=== PATIENT | male | born 1995 | race Caucasian/White ===

== ENCOUNTER 2021-08-09 15:29 | Emergency (ER) | payer OTHER ==
[~2021-08-09] VITALS: Ht 175.3 cm; Wt 76.7 kg
[2021-08-09 15:31] VITALS: BP 138/69
[2021-08-09] MEDS ORDERED: NACL 0.9% 1,000 ML IV ONE (15:55)
[2021-08-09] MEDS ORDERED: KETOROLAC 30 MG/ML VIAL IVP ONE (15:55)
[2021-08-09] MEDS ORDERED: METOCLOPRAMIDE 10 MG/2 ML INJ VIAL IVP ONE (15:55)
--- NOTE | 2021-08-09 15:56 | NUR ---
26Y MALE BIB SELF DUE TO HEADACHE SINCE THIS AM. DENIES HITTING HIS HEAD OR ANY BLURRED VISION. PT STATED HE EXPERINCED AN EPISODIE OF N/V AFTER TAKING IBUPROFEN EARLIER. LET ME KNOW HE DID NOT EAT ANYTHING ALL DAY PRIOR TO TAKING MEDICATION. . PT STATED BESIDES HEAD PAIN HE IS HAVING LOWER BACK PAIN 5/10. COMPLAINS OF NO OTHER PAIN. PT A&OX4, RESTING IN BED. PMH: DENIES NKA
--- NOTE | 2021-08-09 16:25 | NUR ---
TYLER AND FLU SWABBED AND WALED TO LAB
[2021-08-09] MEDS ORDERED: ONDA-188 SL (17:20)
[2021-08-09] MEDS ORDERED: NAPR-54 PO (17:20)
[2021-08-09 17:35] VITALS: BP 138/69
--- NOTE | 2021-08-09 17:36 | NUR ---
Patient discharged with v/s stable. Written and verbal after care instructions given and explained. Patient alert, oriented and verbalized understanding of instructions. Ambulatory with steady gait. All questions addressed prior to discharge. ID band removed. Patient advised to follow up with PMD. Rx of NAPROXEN AND ZOFRAN given. Patient educated on indication of medication including possible reaction and side effects. Opportunity to ask questions provided and answered.
== END 2021-08-09 17:35 | disposition home or self-care (01) ==
LOC: MED 15:29
DX: U07.1 COVID-19 (principal); Z79.899 Other long term (current) drug therapy
CPT/HCPCS: 87426; 87804; 96361; 96374; 96375; 99284; J1885; J2765; J7030

== ENCOUNTER 2021-11-12 22:02 | Emergency (ER) | payer OTHER ==
[~2021-11-12] VITALS: Ht 177.8 cm; Wt 88.5 kg
[~2021-11-12 22:02] MED LIST: NAPR-54 PO; ONDA-188 SL
[2021-11-12 22:05] VITALS: BP 150/85
--- NOTE | 2021-11-12 22:11 | NUR ---
TO LOBBY A/W BED AMBULATORY
--- NOTE | 2021-11-13 00:05 | NUR ---
PT TO BED #6
[2021-11-13] MEDS ORDERED: IBUP-2213 PO (00:31)
--- NOTE | 2021-11-13 00:43 | NUR ---
PER ERMD INSTRUCTION ULNAR GUTTER SPLINT APPLIED TO PTS RIGHT WRITS AND FOREARM. PT TOLERATED THE PROCEDURE WELL +CMS BEFORE AND AFTER APPLICATION
--- NOTE | 2021-11-13 00:53 | NUR ---
NOR NURSING INTVERVETIONS REQUIRED.
== END 2021-11-13 00:58 | disposition home or self-care (01) ==
LOC: MED 22:02
DX: S62.141A Displaced fracture of body of hamate [unciform] bone, right wrist, initial encounter for closed fracture (principal); Z79.899 Other long term (current) drug therapy; W01.0XXA Fall on same level from slipping, tripping and stumbling without subsequent striking against object, initial encounter; Y93.89 Activity, other specified; Y92.89 Other specified places as the place of occurrence of the external cause; Y99.8 Other external cause status
CPT/HCPCS: 73130; 99283